=== PATIENT | female | born 1980 | race Caucasian/White ===

== ENCOUNTER 2020-09-18 23:52 | Emergency (ER) | payer OTHER ==
[~2020-09-18] VITALS: Ht 160 cm; Wt 79.4 kg
[2020-09-19] MEDS ORDERED: HYDROCODONE/APAP 10MG-325MG TAB PO ONE (03:15)
[2020-09-19] MEDS ORDERED: HYDROCODON-ACE1 EAC9 PO (03:15)
== END 2020-09-19 04:30 | disposition home or self-care (01) ==
LOC: ER 09-19 00:24
DX: S92.352A Displaced fracture of fifth metatarsal bone, left foot, initial encounter for closed fracture (principal); S50.02XA Contusion of left elbow, initial encounter; W17.89XA Other fall from one level to another, initial encounter; Y93.01 Activity, walking, marching and hiking; Y92.89 Other specified places as the place of occurrence of the external cause
CPT/HCPCS: 99284

== ENCOUNTER → 2020-10-15 | Day surgery (SDC) | payer OTHER ==
[2020-10-13 16:22] LABS: BASOPHILS % 0.4 % (0.0-1.0); EOSINOPHILS # (AUTO) 0.1 (0.0-0.4); EOSINOPHILS % 1.1 % (0.0-6.0); HEMATOCRIT 38.9 % (34.2-44.1); HEMOGLOBIN 12.7 g/dL (12.0-16.0); LYMPHOCYTES # (AUTO) 2.9 (1.0-3.2); LYMPHOCYTES % 28.3 % (18.0-39.1); MEAN CORPUSCULAR HEMOGLOBIN 32.2 pg (28-32); MEAN CORPUSCULAR HGB CONC 32.6 g/dL (31-35); MEAN CORPUSCULAR VOLUME 98.5 fL (81-99); MONOCYTES # (AUTO) 0.8 (0.2-0.8); MONOCYTES % 7.6 % (4.4-11.3); NEUTROPHILS # (AUTO) 6.4 (2.1-6.9); NEUTROPHILS % 62.3 % (38.7-80.0); PLATELET COUNT 344 x10e3/uL (140-360); RED BLOOD COUNT 3.95 x10e6/uL (3.6-5.1); RED CELL DISTRIBUTION WIDTH 12.9 % (11.7-14.4)
[2020-10-13 16:36] LABS: ANION GAP 15.3 mmol/L (8-16); BLOOD UREA NITROGEN 19 mg/dL (7-26); BUN/CREATININE RATIO 19 (6-25); CARBON DIOXIDE 24 mmol/L (22-29); CHLORIDE 105 mmol/L (98-107); CREATININE, SERUM 0.98 mg/dL (0.57-1.11); EST GLOMERULAR FILTRATION RATE > 60 ML/MIN (60-); GLUCOSE 86 mg/dL (74-118); POTASSIUM 4.3 mmol/L (3.5-5.1); SODIUM 140 mmol/L (136-145)
[~2020-10-15] MED LIST: ACETAMINOPHEN650 M1 PO; ASPIRIN81 MG PO; BIRTH CONTROL PILL PO; BUPIVACAINE HCL 0.5% INJ 30 ML VIAL INJ ONE; CBD GUMMIES PO; CEFAZOLIN SOD 1 GM/NS 50ML 100 ML IV ONE; DELTA 8 PO; DEXAMETHASONE SOD PHOS INJ 4 MG/ML VIAL ONE; FENTANYL CITRATE/PF 100MCG/2 ML INJ ONE; HYDROCODON-ACE1 EAC9 PO; IBUPROFEN200 MG PO; LIDOCAINE HCL 2% LOCAL INJ 5 ML SDV VIAL INJ ONE; MIDAZOLAM HCL 2 MG/2 ML VIAL ONE; NEOSTIGMINE 1 MG/ML 10ML VIAL ONE; ONDANSETRON HCL INJ 2MG/ML 2ML 2 MG/ML VIAL ONE; POVIDONE IODINE 0.05% 0.05 % ML PO ONE; PROPOFOL IV EMULSION 10 MG/ML 20 ML VIAL ONE; SEVOFLURANE INHAL SOLN 250 ML PEN BTL ONE
[2020-10-15 17:10] VITALS: BP 125/68
== END | disposition home or self-care (01) ==
LOC: OR 10:02
PROVIDERS: ATTEND Podiatrist Foot Surgery
DX: S92.352A Displaced fracture of fifth metatarsal bone, left foot, initial encounter for closed fracture (principal); S93.412A Sprain of calcaneofibular ligament of left ankle, initial encounter; S93.492A Sprain of other ligament of left ankle, initial encounter; F41.9 Anxiety disorder, unspecified; X58.XXXA Exposure to other specified factors, initial encounter; Z01.810 Encounter for preprocedural cardiovascular examination; Z01.812 Encounter for preprocedural laboratory examination; Z01.818 Encounter for other preprocedural examination; Z20.822 Contact with and (suspected) exposure to COVID-19; Z79.82 Long term (current) use of aspirin
CPT/HCPCS: 27696; 28485; 36415; 71046; 76000; 80048; 81025; 85025; 93005; C1713; J0690; J1100; J2001; J2250; J2405; J2704; J2710; J3010; Q4150; U0002

== ENCOUNTER 2023-12-07 20:25 | Inpatient (IN) | payer OTHER ==
[~2023-12-07] VITALS: Ht 160 cm; Wt 79.4 kg
[~2023-12-07 20:25] MED LIST changes: -BUPIVACAINE HCL 0.5% INJ 30 ML VIAL INJ ONE; -CEFAZOLIN SOD 1 GM/NS 50ML 100 ML IV ONE; -DEXAMETHASONE SOD PHOS INJ 4 MG/ML VIAL ONE; -FENTANYL CITRATE/PF 100MCG/2 ML INJ ONE; -LIDOCAINE HCL 2% LOCAL INJ 5 ML SDV VIAL INJ ONE; -MIDAZOLAM HCL 2 MG/2 ML VIAL ONE; -NEOSTIGMINE 1 MG/ML 10ML VIAL ONE; -ONDANSETRON HCL INJ 2MG/ML 2ML 2 MG/ML VIAL ONE; -POVIDONE IODINE 0.05% 0.05 % ML PO ONE; -PROPOFOL IV EMULSION 10 MG/ML 20 ML VIAL ONE; -SEVOFLURANE INHAL SOLN 250 ML PEN BTL ONE
[2023-12-07 21:16] VITALS: TEMP 98.4
[2023-12-07] MEDS ORDERED: DEXTROSE 50% SYRINGE 50 ML IV PRN (22:00)
[2023-12-07 22:30] LABS: ALBUMIN 3.7 g/dL (3.5-5.0); ANION GAP 16.8 mmol/L (8-16); BILIRUBIN,TOTAL 0.2 mg/dL (0.2-1.2); CALCIUM 9.4 mg/dL (8.4-10.2); CREATININE, SERUM 1.17 mg/dL (0.57-1.11); POTASSIUM 4.8 mmol/L (3.5-5.1); TOTAL PROTEIN 7.3 g/dL (6.5-8.1)
[2023-12-07 22:51] VITALS: PULSE 89; RESP 17
[2023-12-07] MEDS: ONDANSETRON HCL INJ 2MG/ML 2ML 2 MG/ML VIAL IV PRN (22:54)
[2023-12-07] MEDS ORDERED: GUAIFENESIN/DEXTROMETHORPHAN LIQD 5 ML UDC PO PRN (23:30)
[2023-12-07] MEDS ORDERED: ACETAMINOPHEN 325 MG TAB PO PRN (23:30)
[2023-12-07] MEDS ORDERED: HYDRALAZINE HCL 20 MG/ML VIAL IV PRN (23:30)
[2023-12-07] MEDS ORDERED: MELATONIN 3 MG TAB PO PRN (23:30)
[2023-12-07] MEDS ORDERED: MAGNESIUM/ALUMINUM/SIMETHICONE 30 ML UDC PO PRN (23:30)
[2023-12-07] MEDS ORDERED: DOCUSATE SODIUM 100 MG CAP PO PRN (23:30)
[2023-12-07 23:50] LABS: BASOPHILS % 0.1 % (0.0-1.0); HEMATOCRIT 41.5 % (34.2-44.1); HEMOGLOBIN 14.3 g/dL (12.0-16.0); LYMPHOCYTES # (AUTO) 0.9 (1.0-3.2); MEAN CORPUSCULAR HEMOGLOBIN 33.4 pg (28-32); MEAN CORPUSCULAR HGB CONC 34.5 g/dL (31-35); MONOCYTES # (AUTO) 0.5 (0.2-0.8); MONOCYTES % 2.6 % (4.4-11.3); NEUTROPHILS # (AUTO) 17.4 (2.1-6.9); NEUTROPHILS % 91.6 % (38.7-80.0); PLATELET COUNT 322 x10e3/uL (140-360); RED BLOOD COUNT 4.28 x10e6/uL (3.6-5.1); RED CELL DISTRIBUTION WIDTH 11.9 % (11.7-14.4); WHITE BLOOD COUNT 18.96 x10e3/uL (4.8-10.8)
[2023-12-08] VITALS (13 sets, daily range): BP systolic 117–140; BP diastolic 56–79; PULSE 82–103; RESP 9–20; TEMP 98.1–98.6; O2SAT 90–100
[2023-12-08] MEDS ORDERED: POLYETHYLENE GLYCOL 3350 17 GM PACK PO PRN (02:15)
[2023-12-08] MEDS: SODIUM CHLORIDE 0.9% 1000ML 1,000 ML IV SCH (03:12)
[2023-12-08 07:38] LABS: BASOPHILS # (AUTO) 0.1 (0.0-0.1); BASOPHILS % 0.2 % (0.0-1.0); HEMOGLOBIN 12.9 g/dL (12.0-16.0); LYMPHOCYTES # (AUTO) 2.2 (1.0-3.2); LYMPHOCYTES % 8.8 % (18.0-39.1); MEAN CORPUSCULAR HEMOGLOBIN 33.1 pg (28-32); MEAN CORPUSCULAR HGB CONC 33.9 g/dL (31-35); MEAN CORPUSCULAR VOLUME 97.4 fL (81-99); MONOCYTES # (AUTO) 1.5 (0.2-0.8); MONOCYTES % 6.2 % (4.4-11.3); NEUTROPHILS # (AUTO) 20.7 (2.1-6.9); NEUTROPHILS % 83.9 % (38.7-80.0); PLATELET COUNT 293 x10e3/uL (140-360); RED CELL DISTRIBUTION WIDTH 11.9 % (11.7-14.4); WHITE BLOOD COUNT 24.71 x10e3/uL (4.8-10.8)
[2023-12-08 08:17] LABS: PHOSPHORUS 3.1 MG/DL (2.3-4.7)
[2023-12-08 08:19] LABS: ALBUMIN 3.2 g/dL (3.5-5.0); ALBUMIN/GLOBULIN RATIO 1.1 (0.8-2.0); ANION GAP 14.9 mmol/L (8-16); BILIRUBIN,TOTAL 0.2 mg/dL (0.2-1.2); CALCIUM 8.4 mg/dL (8.4-10.2); CREATININE, SERUM 0.97 mg/dL (0.57-1.11); POTASSIUM 3.9 mmol/L (3.5-5.1); TOTAL PROTEIN 6.2 g/dL (6.5-8.1)
[2023-12-08 08:39] LABS: FREE T4 (FREE THYROXINE) 1.18 ng/dL (0.8-1.8); THYROID STIMULATING HORMONE 1.442 uIU/mL (0.350-4.940)
[2023-12-08] MEDS: FAMOTIDINE 20 MG TAB PO SCH (08:57)
[2023-12-08] MEDS: MULTIVITAMINS/MINERALS TAB PO SCH (08:57)
[2023-12-08] MEDS ORDERED: ULTRAM 50MG50 MG PO (11:33)
[2023-12-08] MEDS ORDERED: PREDNISONE10 MG PO (11:33)
[2023-12-08] MEDS ORDERED: PROMETHAZINE HC25 M1 PO (11:33)
[2023-12-08] MEDS ORDERED: LARIN FE 1-201 EACH PO (11:35)
[2023-12-08 11:53] LABS: LYMPHOCYTES % (MANUAL) 10 % (19-48); MONOCYTES % (MANUAL) 6 % (3.4-9.0); NEUTROPHILS % (MANUAL) 84 % (40-74); PLATELET ESTIMATE ADEQUATE; PLATELET MORPHOLOGY COMMENT NORMAL; RBC MORPHOLOGY COMMENT NORMAL
[2023-12-08] MEDS ORDERED: ONDANSETRON ODT4 MG PO (12:11)
[2023-12-08] MEDS ORDERED: ACETAMINOPHEN325 M1 PO (12:11)
[2023-12-08] MEDS ORDERED: MULTIVITAMINS1 EAC6 PO (12:11)
[2023-12-08] MEDS ORDERED: IBUPROFEN 200 MG TAB PO PRN (12:15)
[2023-12-08] MEDS ORDERED: PROMETHAZINE HCL 25 MG TAB PO PRN (12:15)
[2023-12-08] MEDS ORDERED: TRAMADOL HCL 50 MG TAB PO PRN (12:15)
[2023-12-08] MEDS ORDERED: PREDNISONE 10 MG TAB PO SCH (15:00)
== END 2023-12-08 13:20 | disposition home or self-care (01) | DRG 918 ==
LOC: ER 20:35 → ERHOLD 21:49 → ICU 23:59 → MED/SURG 12-08 10:43
PROVIDERS: ADMIT Internal Medicine; ATTEND Internal Medicine
DX: T38.3X1A Poisoning by insulin and oral hypoglycemic [antidiabetic] drugs, accidental (unintentional), initial encounter (principal); R11.0 Nausea; R51.9 Headache, unspecified; E66.9 Obesity, unspecified; F41.9 Anxiety disorder, unspecified; Z11.52 Encounter for screening for COVID-19; Z68.31 Body mass index [BMI] 31.0-31.9, adult; Z79.891 Long term (current) use of opiate analgesic; Z79.82 Long term (current) use of aspirin; Z79.899 Other long term (current) drug therapy; Z79.3 Long term (current) use of hormonal contraceptives; Z98.890 Other specified postprocedural states
CPT/HCPCS: 36415; 80053; 80061; 82948; 83036; 83690; 83735; 84100; 84439; 84443; 84702; 85025; 94799; 99284; J2405; J7030; U0002